=== PATIENT | female | born 1965 | race Caucasian/White ===

== ENCOUNTER → 2018-02-24 | Outpatient (CLI) | payer BC ==
--- NOTE | 2018-03-04 09:57 | MM ---
Reason for exam: screening (asymptomatic). Last mammogram was performed 3 years and 1 month ago. History: Patient is postmenopausal. Excisional biopsy of the right breast, 1997. Took hormonal contraceptives for 5 years. MG 3D Screening Mammo W/Cad Bilateral CC and MLO view(s) were taken. Prior study comparison: January 16, 2015, bilateral MG 3d screening mammo w/cad. February 15, 2008, bilateral digital screening mammogram. There are scattered fibroglandular densities. No significant changes when compared with prior studies. ASSESSMENT: Benign, BI-RAD 2 RECOMMENDATION: Routine screening mammogram of both breasts in 1 year.
== END | disposition home or self-care (01) ==
LOC: RADMAMWWP 08:58
PROVIDERS: ATTEND Family Medicine
DX: Z12.31 Encounter for screening mammogram for malignant neoplasm of breast (principal)
CPT/HCPCS: 77063; 77067

== ENCOUNTER → 2019-09-11 | Outpatient (CLI) | payer BC ==
[~2019-09-11] MED LIST: REGADENOSON 0.4 MG/5 ML SYRINGE IV ONE
--- NOTE | 2019-09-11 12:25 | P.STRESS ---
- Stress Test Note Stress Test Results/Findings: Exam Performed: NM stress lexiscan cardiolite Exam Date: 09/11/19 Reason for Exam: Abnormal EKG Height: 5 ft 6 in Weight: 165.108 kg Protocol: Lexiscan Stage: na Duration of Exercise: na Resting Heart Rate: 74 Resting Blood Pressure: 150/77 Maximum Achieved Heart Rate: 86 Maximum Achieved Blood Pressure: 150/77 85% PMHR: 139 100% PMHR: 164 METS: na Technologist Comment: Stress Test Results/Findings: This is a 54-year-old female with history of asthma being evaluated for symptoms of shortness of breath. Stress data: Baseline EKG showed sinus rhythm with poor R-wave progression in anterior leads and left axis deviation and mild nonspecific artifacts. Blood pressure at rest is 150/77, pulse rate of 74. A standard dose of Lexiscan was infused. EKG did not reveal any changes from the baseline. Final impression: #1. Negative Lexiscan stress test #2. Report on nuclear images to be given by the radiologist
--- NOTE | 2019-09-11 15:58 | NM ---
EXAMINATION TYPE: NM stress lexiscan cardiolite DATE OF EXAM: 09/11/2019 COMPARISON: NONE HISTORY: Abnormal EKG TECHNIQUE: After the intravenous administration of 10.8 mCi Tc 99m Sestamibi - Cardiolite resting SP ECT images acquired 120 minutes post injection. The patient received 0.4mg Lexiscan, 25.3 mCi Tc 99m Sestamibi - Stress images obtained [address] injection FINDINGS: There is decreased activity of the anterolateral wall on rest images which improves on stress, and ap pears related to breast attenuation artifact. Review of stress and rest SPECT images demonstrates rev ersible perfusion abnormality of the apical inferolateral wall. Gated analysis shows normal wall mot ion with an estimated left ventricular ejection fraction of 51 %. TID 0.66 IMPRESSION: 1. Apical inferolateral wall reversible perfusion abnormality. 2. Ejection fraction 51%.
--- NOTE | 2019-09-12 11:06 | ECHOF ---
Referral Reason:R94.31 Abnormal ekg MEASUREMENTS -------- HEIGHT: 165.1 cm WEIGHT: 165.1 kg BP: RVIDd: 3.3 cm (< 3.3) IVSd: 1.2 cm (0.6 - 1.1) LVIDd: 5.5 cm (3.9 - 5.3) LVPWd: 1.2 cm (0.6 - 1.1) IVSs: 1.4 cm LVIDs: 4.0 cm LVPWs: 1.6 cm Ao Diam: 2.8 cm (2.0 - 3.7) AV Cusp: 2.3 cm (1.5 - 2.6) MV EXCURSION: 19.913 mm (> 18.000) MV EF SLOPE: 50 mm/s (70 - 150) EPSS: 0.5 cm FINDINGS -------- Sinus rhythm. Morbid Obesity The left ventricular size is normal. There is mild concentric left ventricular hypertrophy. Overa ll left ventricular systolic function is mild-moderately impaired with, an EF between 40 - 45 %. The right ventricle is normal in size. The left atrial size is normal. The right atrial size is normal. 5.0mg OF Lumason UTLIZED: 2 OR MORE WALL SEGMENTS NOT VISUALIZED. The aortic valve was not well visualized. Mild mitral regurgitation is present. The tricuspid valve was not well visualized. No regurgitation noted Unable to estimate RVSP due t o inadequate TR jet spectral doppler profile. The pulmonic valve was not well visualized. There is a small, generalized pericardial effusion present. CONCLUSIONS -------- 1. Sinus rhythm. 2. Morbid Obesity 3. The left ventricular size is normal. 4. There is mild concentric left ventricular hypertrophy. 5. Overall left ventricular systolic function is mild-moderately impaired with, an EF between 40 - 45 %. 6. The right ventricle is normal in size. 7. The left atrial size is normal. 8. The right atrial size is normal. 9. 5.0mg OF Lumason UTLIZED: 2 OR MORE WALL SEGMENTS NOT VISUALIZED. 10. The aortic valve was not well visualized. 11. Mild mitral regurgitation is present. 12. The tricuspid valve was not well visualized. 13. No regurgitation noted 14. Unable to estimate RVSP due to inadequate TR jet spectral doppler profile. 15. The pulmonic valve was not well visualized. 16. There is a small, generalized pericardial effusion present. RECORDER OF DEEDS: [place] RDCS
== END | disposition home or self-care (01) ==
LOC: RADNMMAIN 08:48
PROVIDERS: ATTEND Family Medicine
DX: R94.39 Abnormal result of other cardiovascular function study (principal); I51.7 Cardiomegaly; I34.0 Nonrheumatic mitral (valve) insufficiency; E66.01 Morbid (severe) obesity due to excess calories; I31.3 Pericardial effusion (noninflammatory); I51.9 Heart disease, unspecified
CPT/HCPCS: 93017; 93306; 78452; A9500; J2785; Q9950

== ENCOUNTER → 2019-10-14 | Outpatient (CLI) | payer BC ==
[2019-10-14 15:05] LABS: HCT 48.5 % (34.0-46.0); HGB 15.4 gm/dL (11.4-16.0); MCH 29.7 pg (25.0-35.0); MCHC 31.8 g/dL (31.0-37.0); MCV 93.4 fL (80.0-100.0); Mean Platelet Volume 7.8; Platelet Count 210 k/uL (150-450); RBC 5.19 m/uL (3.80-5.40); RDW 13.8 % (11.5-15.5); WBC 8.5 k/uL (3.8-10.6)
[2019-10-14 15:14] LABS: African American GFR (CKD) >90 (>60 ml/min/1.73 sqM); Anion Gap 6 mmol/L; Blood Urea Nitrogen 7 mg/dL (7-17); Carbon Dioxide 30 mmol/L (22-30); Chloride 105 mmol/L (98-107); Non-African American GFR(CKD) 89 (>60 ml/min/1.73 sqM); Potassium 3.7 mmol/L (3.5-5.1); Sodium 141 mmol/L (137-145)
== END | disposition home or self-care (01) ==
LOC: LABPAT 12:27
PROVIDERS: ATTEND Internal Medicine Cardiovascular Disease
DX: Z01.818 Encounter for other preprocedural examination (principal); R93.1 Abnormal findings on diagnostic imaging of heart and coronary circulation
CPT/HCPCS: 36415; 80051; 82565; 84520; 85027

== ENCOUNTER 2019-10-21 06:25 | Day surgery (SDC) | payer BC ==
[2019-10-16 13:59] VITALS: BMI 58.1
[~2019-10-21 06:25] MED LIST changes: +ALPRAZolam 0.25 MG TAB PO PRN; +ALPRAZolam 0.5 MG TAB PO PRN; +ASPIRIN 325 MG TAB PO STA; +ATORVASTATIN 80 MG TAB PO STA; +NITROGLYCERIN SL TABS 0.4 MG TAB SUBLINGUAL PRN; -REGADENOSON 0.4 MG/5 ML SYRINGE IV ONE; +SODIUM CHLORIDE 0.9% 1,000 ML in EMPTY BAG 1 BAG IV ONE
[2019-10-21 07:34] VITALS: TEMP 98.2
[2019-10-21] MEDS ORDERED: MIDAZOLAM 2 MG/2 ML VIAL IV ONE (07:52)
[2019-10-21] MEDS: fentaNYL (PF) 50 MCG/ML 2 ML AMP IV ONE ×2 (07:52→07:58)
[2019-10-21] MEDS ORDERED: LIDOCAINE 1% INJ 10MG/ML (20 ML MDV) SQ ONE (07:55)
[2019-10-21] MEDS ORDERED: IOPAMIDOL-370 125ML BTL INJ ONE (08:07)
[2019-10-21] MEDS ORDERED: RX INFO: IV CONTRAST WAS GIVEN 1 EACH MISC MISCELLANE PRN (08:18)
[2019-10-21] MEDS ORDERED: SODIUM CHLORIDE 0.9% 1,000 ML IV SCH (08:30)
[2019-10-21] MEDS ORDERED: HYDROcodone/APAP 5-325MG 1 EACH TAB ONE (09:10)
--- NOTE | 2019-10-21 11:05 | CC ---
CARDIAC CATHETERIZATION REPORT INDICATION: Abnormal stress test. PROCEDURE NOTE: After obtaining informed consent, left heart catheterization and coronary angiogram are performed via the right femoral artery using standard Estrella catheters. Patient tolerated the procedure well without any obvious immediate complications. A femoral angiogram was performed and Angio-Seal was deployed for hemostasis. FINDINGS: HEMODYNAMICS: Left ventricular end-diastolic pressure is 12-14 mm. There is no significant gradient across the aortic valve. LEFT VENTRICULOGRAM: Left ventriculogram is not performed. ANGIOGRAPHIC DATA LEFT MAIN CORONARY ARTERY: Left main coronary artery is a normal-sized vessel and is free of stenosis. Divides into left anterior descending coronary artery and circumflex coronary artery. LAD and its branches, circumflex coronary artery and its branches are free of significant stenosis. Right coronary artery is a large dominant vessel and is free of significant disease. CONCLUSION: 1. Normal coronary arteries. 2. Normal left ventricular end-diastolic pressure. 3. False positive stress. Patient received moderate conscious sedation, total sedation time was 14 minutes. I reviewed cardiac catheterization findings with the patient and her stress is a false positive stress test. MMODL / IJN: [id number] /
--- NOTE | 2019-10-21 11:11 | LTR ---
DATE OF SERVICE: 10/21/2019 RE: Marvin Mary Dear Dr. Victor: I performed cardiac catheterization on Mary Wong, a detailed catheterization note is forwarded for your records. In brief, the cardiac catheterization revealed normal coronary arteries and her stress test is a false positive stress test. Patient's management is going to be in the form of risk factor modification and optimal medical therapy. Thank you for giving us the privilege to participate in the care of this pleasant lady. Sincerely yours, MD SLIM Mueller / MICHELLE: [id number] /
[2019-10-21 11:25] VITALS: RESP 16
[2019-10-21 11:36] VITALS: BP 121/64; PULSE 57
== END 2019-10-21 14:30 | disposition home or self-care (01) ==
LOC: CATHCVL 06:25
PROVIDERS: ATTEND Internal Medicine Cardiovascular Disease
DX: R94.39 Abnormal result of other cardiovascular function study (principal); R93.1 Abnormal findings on diagnostic imaging of heart and coronary circulation; I34.0 Nonrheumatic mitral (valve) insufficiency; J45.909 Unspecified asthma, uncomplicated; F32.9 Major depressive disorder, single episode, unspecified; E66.01 Morbid (severe) obesity due to excess calories; Z68.43 Body mass index [BMI] 50.0-59.9, adult; Z79.899 Other long term (current) drug therapy; Z79.51 Long term (current) use of inhaled steroids; Z88.8 Allergy status to other drugs, medicaments and biological substances; Z98.84 Bariatric surgery status; Z90.49 Acquired absence of other specified parts of digestive tract; Z82.49 Family history of ischemic heart disease and other diseases of the circulatory system
CPT/HCPCS: 93458; C1769 ×2; C1760; C1894; J2250; J2001; J3010; Q9967

== ENCOUNTER → 2020-11-24 | Outpatient (CLI) | payer BC ==
--- NOTE | 2020-11-24 15:52 | P.BASOAP ---
Subjective Progress Note Date: 11/24/20 Principal diagnosis: Morbid obesity 55-year-old female known to our service. Patient had a lap band in the past. It was removed about 4-5 years ago when the patient was hospitalized with acute cholecystitis. Patient's highest weight prior to the band was 364. Lowest weight with the band in place was around 290. Current weight 354. Patient is considering alternate bariatric procedures at this point. Patient suffers from asthma, hypertension, borderline hypercholesterolemia. Patient has joint pain. Underwent recent extensive cardiac workup which sounds like it was normal. Objective - Exam Abdomen: Soft, nontender, nondistended Assessment/Plan (1) Morbid obesity Narrative/Plan: 55-year-old female with morbid obesity. Patient with history of prior lap band. Discussed options. I feel the patient would likely do better long-term with gastric bypass at this point given the anatomy set up by having the prior lap band in place and also given the degree of obesity with BMI 57. Patient likewise would like to proceed with a more definitive surgery if the degree of weight loss is higher with gastric bypass. We'll make referral to bariatric surgeon that performs this procedure. Patient will contact me further with any additional questions. Plan: Date: Initial Weight: Initial BMI: Current Weight: Current BMI: Type of Surgery: Total Volume in Band: Previous Volume: Volume Removed: Volume Added: Band Size:
[2020-11-24 15:55] VITALS: BP 143/84; PULSE 78; TEMP 98.9; BMI 57.1
== END ==
LOC: BARWHC3 14:55
PROVIDERS: ATTEND Surgery
DX: E66.01 Morbid (severe) obesity due to excess calories (principal); J45.909 Unspecified asthma, uncomplicated; I10 Essential (primary) hypertension; Z98.84 Bariatric surgery status; Z68.43 Body mass index [BMI] 50.0-59.9, adult; Z91.048 Other nonmedicinal substance allergy status; Z88.2 Allergy status to sulfonamides
CPT/HCPCS: 99211

== ENCOUNTER 2021-02-02 10:55 | Day surgery (SDC) | payer BC ==
[2021-01-28 15:59] VITALS: BMI 56.5
[~2021-02-02 10:55] MED LIST changes: -ALPRAZolam 0.25 MG TAB PO PRN; -ALPRAZolam 0.5 MG TAB PO PRN; -ASPIRIN 325 MG TAB PO STA; -ATORVASTATIN 80 MG TAB PO STA; +LACTATED RINGERS 1,000 ML IV SCH; -NITROGLYCERIN SL TABS 0.4 MG TAB SUBLINGUAL PRN; -SODIUM CHLORIDE 0.9% 1,000 ML in EMPTY BAG 1 BAG IV ONE
[2021-02-02 11:22] VITALS: TEMP 97.1
[2021-02-02] MEDS ORDERED: LIDOCAINE 1% INJ 10MG/ML (20 ML MDV) ONE (11:42)
[2021-02-02] MEDS ORDERED: PROPOFOL 10 MG/ML 20 ML VIAL IV ONE (11:42)
--- NOTE | 2021-02-02 11:48 | P.GSHP ---
History of Present Illness H&P Date: 02/02/21 Chief Complaint: GERD Patient here today for upper endoscopy. Patient interested in bariatric surgery. Was seen in the bariatric clinic. Patient with personal history of lap band in the past. Evaluated at [facility] for possible gastric bypass. Here today for preoperative endoscopic evaluation. Complains of mild reflux. Past Medical History Past Medical History: Asthma, Hypertension, Musculoskeletal Disorder, Skin Di sorder Additional Past Medical History / Comment(s): Eczema. Low back pain History of Any Multi-Drug Resistant Organisms: None Reported Past Surgical History: Bariatric Surgery, Cholecystectomy, Hysterectomy Additional Past Surgical History / Comment(s): Lap band, later removed w/ gallbladder. Heel spur. Past Anesthesia/Blood Transfusion Reactions: No Reported Reaction Additional Past Anesthesia/Blood Transfusion Reaction / Comment(s): Told by Dr Mann "I was missing an ezyme that processes anesthesia," woke up after surgery unable to move, felt panicky. Smoking Status: Never smoker - Past Family History Mother Family Medical History: Cancer Additional Family Medical History / Comment(s): lung cancer, mets to brain Medications and Allergies Home Medications Medication Instructions Recorded Confirmed Type Methylphenidate HCl [Concerta] 72 mg PO DAILY 10/16/19 02/02/21 History Montelukast [Singulair] 10 mg PO DAILY 10/16/19 01/28/21 History buPROPion HCL [Wellbutrin XL] 450 mg PO DAILY 10/16/19 01/28/21 History ALPRAZolam [Xanax] 0.5 mg PO BID PRN 10/17/19 02/02/21 History Albuterol Sulfate [Ventolin HFA] 1 - 2 puff INHALATION Q6H PRN 10/17/19 02/02/21 History Budesonide/Formoterol Fumarate 2 puff INHALATION BID 10/17/19 02/02/21 History [Symbicort 80-4.5 Mcg Inhaler] Inulin/Chromium Picolinate [Fiber 2 - 3 each PO DAILY 10/17/19 02/02/21 History Gummies Chew] Tolterodine [Detrol] 2 mg PO DAILY 10/17/19 01/28/21 History clonazePAM [KlonoPIN] 1 - 2 mg PO HS 10/17/19 01/28/21 History traZODone HCL 100 - 200 mg PO HS 10/17/19 01/28/21 History Metoprolol Tartrate [Lopressor] 50 mg PO DAILY 10/21/19 01/28/21 History Brexpiprazole [Rexulti] 3 mg PO DAILY 01/28/21 02/02/21 History Allergies Allergy/AdvReac Type Severity Reaction Status Date / Time adhesive tape Allergy Rash/Hives Verified 02/02/21 11:11 sertraline [From Zoloft] Allergy Rash/Hives Verified 02/02/21 11:11 Surgical - Exam Vital Signs Temp Pulse Resp BP Pulse Ox 97.1 F L 66 16 138/66 94 L 02/02/21 11:20 02/02/21 11:20 02/02/21 11:20 02/02/21 11:20 02/02/21 11:20 Physical exam: General: Well-developed, well-nourished HEENT: Normocephalic, sclerae nonicteric Abdomen: Nontender, nondistended Extremities: No edema Neuro: Alert and oriented Assessment and Plan (1) GERD (gastroesophageal reflux disease) Narrative/Plan: Will proceed with EGD at this time. Current Visit: Yes Status: Acute Code(s): K21.9 - GASTRO-ESOPHAGEAL REFLUX D ISEASE WITHOUT ESOPHAGITIS SNOMED Code(s): 480229936
--- NOTE | 2021-02-02 11:54 | P.PCN ---
Date of Procedure: 02/02/21 Procedure(s) Performed: Preoperative Dx: GERD, presurgical Postoperative Dx: Mild gastritis Procedure: EGD with Bx Anesthesia: Sedation Endoscopist: Dr. Mann Specimens: Antrum Endoscopic Procedure: The patient was on the endoscopy table in the left decubitus position. The Olympus gastroscope was inserted into the oropharynx and passed under direct visualization to the region of the third portion of the duodenum. From that point the scope was slowly withdrawn inspecting all surfaces carefully. There were no neoplastic inflammatory or polypoid lesions throughout the duodenum. The pylorus was widely patent. The stomach was carefully inspected. There was mild gastritis seen diffusely throughout the stomach. No ulcerations or erosions were noted. Very subtle postop changes from previous lap band were suspected at the fundus. A biopsy of the antrum took place to rule out H. pylori. Retroflexion revealed a normal hiatus. The esophagus was then carefully examined. There were no neoplastic inflammatory or polypoid lesions throughout the visualized esophagus. The patient was then taken to the recovery room in stable condition per anesthesia guidelines. Recommendations: Await biopsies results. Resume diet. Follow-up [facility] bariatric clinic.
[2021-02-02 12:30] VITALS: BP 119/64
[2021-02-02 12:32] VITALS: PULSE 66; RESP 20
== END 2021-02-02 12:49 | disposition home or self-care (01) ==
LOC: ORWHC2ENDO 10:55
PROVIDERS: ATTEND Surgery
DX: K29.70 Gastritis, unspecified, without bleeding (principal)
CPT/HCPCS: 43239; J2001; J2704; 88305; 88341; 88342

== ENCOUNTER → 2021-03-13 | Outpatient (CLI) | payer BC ==
[2021-03-13 16:40] LABS: Basophils # (A) 0.07 X 10*3/uL (0.00-0.10); Basophils % (A) 1.2 %; Eosinophils # (A) 0.15 X 10*3/uL (0.04-0.35); Eosinophils % (A) 2.5 %; HCT 47.4 % (37.2-46.3); Lymphocytes # (A) 1.83 X 10*3/uL (0.90-5.00); Lymphocytes % (A) 30.6 %; MCH 28.7 pg (27.0-32.0); MCHC 31.6 g/dL (32.0-37.0); MCV 90.6 fL (80.0-97.0); Mean Platelet Volume 10.4 fL (9.5-12.2); Monocytes % (A) 8.3 %; Neutrophils # (A) 3.43 X 10*3/uL (1.80-7.70); Neutrophils % (A) 57.2 %; Platelet Count 224 X 10*3/uL (140-440); RBC 5.23 X 10*6/uL (4.10-5.20); RDW 14.2 % (11.5-14.5); WBC 5.99 X 10*3/uL (4.50-10.00)
[2021-03-13 17:11] LABS: % Iron Saturation 29.83 (12.00-45.00); ALT 21 U/L (8-44); AST 19 U/L (13-35); African American GFR (CKD) 71.9 (60.0-200.0); Albumin 4.2 g/dL (3.8-4.9); Alkaline Phosphatase 76 U/L (41-126); Blood Urea Nitrogen 9.8 mg/dL (9.0-27.0); Calcium 9.5 mg/dL (8.7-10.3); Carbon Dioxide 25.5 mmol/L (20.0-27.5); Chloride 102 mmol/L (96-109); Chol/HDL Ratio 3.79 Ratio; Ferritin 62.9 ng/mL (10.0-291.0); Globulin 2.8 g/dL (1.6-3.3); Glucose 116 mg/dL (70-110); Iron 114 ug/dL (50-170); LDL Cholesterol,Calculated 118.5 mg/dL (0.0-131.0); Non-African American GFR(CKD) 62.1 (60.0-200.0); Sodium 140 mmol/L (135-145); Total Iron Binding Capacity 382 ug/dL (228-460)
== END ==
LOC: LABWHC1 10:28
PROVIDERS: ATTEND Surgery
DX: Z01.812 Encounter for preprocedural laboratory examination (principal); Z01.818 Encounter for other preprocedural examination; E66.01 Morbid (severe) obesity due to excess calories
CPT/HCPCS: 36415; 80053; 80061; 82306; 82607; 82728; 82746; 83036; 83540; 83550; 83970; 84425; 84439; 84443; 85025

== ENCOUNTER → 2021-04-13 | Outpatient (CLI) | payer BC ==
--- NOTE | 2021-04-13 15:54 | CT ---
EXAMINATION TYPE: CT brain wo con DATE OF EXAM: 04/13/2021 COMPARISON: None HISTORY: 56-year-old female S00.93XA headache and dizziness following fall TECHNIQUE: Examination was done in axial plane without intravenous contrast. Coronal and sagittal r econstructions performed. CT DLP: 1177 mGycm Automated exposure control for dose reduction was used. FINDINGS: There is no evidence of acute intracranial hemorrhage, acute ischemic changes, mass, mass-effect, or extra-axial fluid collection. There is no effacement of cerebral sulci or basal subarachnoid cister ns. There is no hydrocephalus. There is no midline shift. Villeda-white matter distinction is preserv ed. 4 cm of cerebellar tonsillar ectopia on the right and 3 mm on the left. No yuko tonsillar beaking or abnormal crowding of the foramen magnum. Partially empty sella noted. Orbits and globes are intact. Sinuses and mastoid air cells are well pneumatized. Normal variation hyperostosis frontalis interna. IMPRESSION: No acute intracranial abnormality seen. Some incidental findings including benign cerebellar tonsilla r ectopia, partially empty sella, and hyperostosis frontalis interna.
== END | disposition home or self-care (01) ==
LOC: RADCTMAIN 15:28
PROVIDERS: ATTEND Nurse Practitioner Adult Health
DX: S00.93XA Contusion of unspecified part of head, initial encounter (principal); X58.XXXA Exposure to other specified factors, initial encounter
CPT/HCPCS: 70450

== ENCOUNTER → 2021-10-23 | Outpatient (CLI) | payer BC ==
[2021-10-23 17:09] LABS: Basophils # (A) 0.05 X 10*3/uL (0.00-0.10); Basophils % (A) 0.8 %; Eosinophils # (A) 0.16 X 10*3/uL (0.04-0.35); Eosinophils % (A) 2.6 %; HCT 44.6 % (37.2-46.3); HGB 14.9 g/dL (12.0-15.0); Immature Grans, Automated 0 %; Lymphocytes # (A) 2.12 X 10*3/uL (0.90-5.00); Lymphocytes % (A) 33.9 %; MCH 30.5 pg (27.0-32.0); MCHC 33.4 g/dL (32.0-37.0); MCV 91.2 fL (80.0-97.0); Mean Platelet Volume 10.7 fL (9.5-12.2); Monocytes # (A) 0.45 X 10*3/uL (0.20-1.00); Monocytes % (A) 7.2 %; NRBC Per 100 WBC 0 /100 WBCS (0.0-0.0); Neutrophils # (A) 3.47 X 10*3/uL (1.80-7.70); Neutrophils % (A) 55.5 %; Platelet Count 208 X 10*3/uL (140-440); RBC 4.89 X 10*6/uL (4.10-5.20); RDW 14.5 % (11.5-14.5); WBC 6.25 X 10*3/uL (4.50-10.00)
[2021-10-23 17:57] LABS: % Iron Saturation 34.91 (12.00-45.00); ALT 27 U/L (8-44); AST 14 U/L (13-35); African American GFR (CKD) 94.2 (60.0-200.0); Albumin 4.3 g/dL (3.8-4.9); Albumin/Globulin Ratio 1.87 (1.60-3.17); Alkaline Phosphatase 75 U/L (41-126); BUN/Creat Ratio 25.13 Ratio (12.00-20.00); Blood Urea Nitrogen 20.1 mg/dL (9.0-27.0); Calcium 9.6 mg/dL (8.7-10.3); Carbon Dioxide 26.3 mmol/L (20.0-27.5); Chloride 107 mmol/L (96-109); Ferritin 99.6 ng/mL (10.0-291.0); Globulin 2.3 g/dL (1.6-3.3); Glucose 142 mg/dL (70-110); Iron 131 ug/dL (50-170); LDL Cholesterol,Calculated 120.1 mg/dL (0.0-131.0); Non-African American GFR(CKD) 81.3 (60.0-200.0); Potassium 3.9 mmol/L (3.5-5.5); Sodium 144 mmol/L (135-145); Total Iron Binding Capacity 375 ug/dL (228-460); Total Protein 6.6 g/dL (6.2-8.2); VLDL Calculation 19.32 mg/dL (5.00-40.00)
== END | disposition home or self-care (01) ==
LOC: LABWHC1 10:17
PROVIDERS: ATTEND Surgery
DX: Z01.812 Encounter for preprocedural laboratory examination (principal); E11.69 Type 2 diabetes mellitus with other specified complication; E66.01 Morbid (severe) obesity due to excess calories
CPT/HCPCS: 36415; 80053; 80061; 82306; 82607; 82728; 82746; 83036; 83540; 83550; 83970; 84425; 84443; 85025

== ENCOUNTER → 2022-06-11 | Outpatient (CLI) | payer BC ==
[2022-06-11 23:46] LABS: HCT 44.7 % (37.2-46.3); HGB 14.3 g/dL (12.0-15.0); MCH 30.6 pg (27.0-32.0); MCV 95.7 fL (80.0-97.0); Mean Platelet Volume 11.1 fL (9.5-12.2); NRBC Per 100 WBC 0 /100 WBCS (0.0-0.0); Platelet Count 235 X 10*3/uL (140-440); RBC 4.67 X 10*6/uL (4.10-5.20); RDW 14.6 % (11.5-14.5); WBC 5.35 X 10*3/uL (4.50-10.00)
[2022-06-12 08:38] LABS: % Iron Saturation 33.26 (12.00-45.00); ALT 28 U/L (8-44); AST 18 U/L (13-35); African American GFR (CKD) 91.2 (60.0-200.0); Albumin 4.1 g/dL (3.8-4.9); Albumin/Globulin Ratio 1.81 (1.60-3.17); Alkaline Phosphatase 94 U/L (41-126); BUN/Creat Ratio 13.95 Ratio (12.00-20.00); Blood Urea Nitrogen 11.4 mg/dL (9.0-27.0); Calcium 9.3 mg/dL (8.7-10.3); Chloride 109 mmol/L (96-109); Chol/HDL Ratio 2.95 Ratio; Globulin 2.3 g/dL (1.6-3.3); Glucose 98 mg/dL (70-110); Iron 115 ug/dL (50-170); LDL Cholesterol,Calculated 86.7 mg/dL (0.0-131.0); Non-African American GFR(CKD) 78.7 (60.0-200.0); Potassium 3.7 mmol/L (3.5-5.5); Sodium 147 mmol/L (135-145); Total Iron Binding Capacity 346 ug/dL (228-460); Total Protein 6.4 g/dL (6.2-8.2); VLDL Calculation 13.14 mg/dL (5.00-40.00)
== END | disposition home or self-care (01) ==
LOC: LABWHC1 10:15
PROVIDERS: ATTEND Surgery
DX: Z48.815 Encounter for surgical aftercare following surgery on the digestive system (principal); Z98.84 Bariatric surgery status; Z91.89 Other specified personal risk factors, not elsewhere classified; E66.01 Morbid (severe) obesity due to excess calories; K91.2 Postsurgical malabsorption, not elsewhere classified; Z68.43 Body mass index [BMI] 50.0-59.9, adult
CPT/HCPCS: 36415; 80053; 80061; 82306; 82607; 82728; 82746; 83036; 83540; 83550; 83970; 84425; 85027

== ENCOUNTER → 2023-05-18 | Outpatient (CLI) | payer BC ==
[2023-05-18 15:19] LABS: Basophils # (A) 0.06 X 10*3/uL (0.00-0.10); Basophils % (A) 0.9 %; Eosinophils # (A) 0.13 X 10*3/uL (0.04-0.35); Eosinophils % (A) 1.8 %; HCT 43.2 % (37.2-46.3); HGB 13.9 g/dL (12.0-15.0); Lymphocytes # (A) 2.44 X 10*3/uL (0.90-5.00); Lymphocytes % (A) 34.7 %; MCH 30.4 pg (27.0-32.0); MCHC 32.2 g/dL (32.0-37.0); MCV 94.5 FL (80.0-97.0); Mean Platelet Volume 9.9 FL (9.5-12.2); Monocytes # (A) 0.56 X 10*3/uL (0.20-1.00); NRBC Per 100 WBC 0 X 10*3/uL (0.00-0.01); Neutrophils # (A) 3.82 X 10*3/uL (1.80-7.70); Neutrophils % (A) 54.3 %; Platelet Count 232 X 10*3/uL (140-440); RBC 4.57 X 10*6/uL (4.10-5.20); RDW 14.2 % (11.5-14.5); WBC 7.03 X 10*3/uL (4.50-10.00)
[2023-05-18 15:40] LABS: ALT 21 U/L (8-44); AST 14 U/L (13-35); Albumin 3.9 g/dL (3.8-4.9); Albumin/Globulin Ratio 1.62 Ratio (1.60-3.17); Alkaline Phosphatase 93 U/L (41-126); BUN/Creat Ratio 21.71 Ratio (12.00-20.00); Blood Urea Nitrogen 15.2 mg/dL (9.0-27.0); Calcium 9.7 mg/dL (8.7-10.3); Carbon Dioxide 28.7 mmol/L (21.6-31.8); Chloride 107 mmol/L (96-109); Chol/HDL Ratio 2.56 Ratio; Globulin 2.4 g/dL (1.6-3.3); Glucose 96 mg/dL (70-110); LDL Cholesterol,Calculated 91.6 mg/dL (0.0-131.0); Potassium 3.8 mmol/L (3.5-5.5); Sodium 146 mmol/L (135-145); T4, Free (Free Thyroxine) 1.01 ng/dL (0.80-1.80); Total Bilirubin 0.6 mg/dL (0.3-1.2); Total Protein 6.3 g/dL (6.2-8.2); VLDL Calculation 16.26 mg/dL (5.00-40.00)
== END | disposition home or self-care (01) ==
LOC: LABWHC1 08:21
PROVIDERS: ATTEND Nurse Practitioner Family
DX: I10 Essential (primary) hypertension (principal); E11.9 Type 2 diabetes mellitus without complications
CPT/HCPCS: 36415; 80053; 80061; 83036; 84439; 84443; 85025

== ENCOUNTER → 2024-08-20 | Outpatient (CLI) | payer BC ==
--- NOTE | 2024-08-20 11:00 | MM ---
Reason for Exam: Screening (asymptomatic). Last mammogram was performed 6 year(s) and 6 month(s) ago. Patient History: Menarche at age 10. First Full-Term at age 15. Left ovary removed at age 50. Right ovary removed at age 50. Hysterectomy at age 50. Postmenopausal. Patient used Hormonal Contraceptives for 5 years. 1997, Excisional Biopsy on the Right side. Risk Values: Mahi 5 year model risk: 1.3%. NCI Lifetime model risk: 6.1%. Prior Study Comparison: 02/15/2008 Bilateral Screening Mammogram, [facility]. 01/16/2015 Bilateral Screening Mammogram, [facility]. 02/24/2018 Bilateral Screening Mammogram, [facility]. Tissue Density: There are scattered areas of fibroglandular density. Findings: Analyzed By CAD. There is no suspicious group of microcalcifications or new suspicious mass in either breast. Overall Assessment: Negative, BI-RAD 1 Management: Screening Mammogram of both breasts in 1 year. Patient should continue monthly self-breast exams. A clinical breast exam by your physician is recommended on an annual basis. This exam should not preclude additional follow-up of suspicious palpable abnormalities. Note on Mahi scores and lifetime risk: 1. A Mahi score greater than 3% is considered moderate risk. If this is the case, consider specialist referral to assess eligibility for a risk reducing agent. 2. If overall lifetime risk for the development of breast cancer is 20% or higher, the patient may qualify for future screening with alternating mammogram and breast MRI. [facility], , 08/20/2024 10:57 AM. Electronically signed and approved by: Arie Rogel M.D. Radiologist
== END | disposition home or self-care (01) ==
LOC: RADMAMWWP 06:54
PROVIDERS: ATTEND Family Medicine
DX: Z12.31 Encounter for screening mammogram for malignant neoplasm of breast (principal); R92.323 Mammographic fibroglandular density, bilateral breasts; Z78.0 Asymptomatic menopausal state; Z92.0 Personal history of contraception
CPT/HCPCS: 77063; 77067